=== PATIENT | male | born 1940 | race African-American/Black ===

== ENCOUNTER 2023-10-21 18:02 | Inpatient (IN) | payer MEDICARE, MEDICAID ==
[~2023-10-21 18:02] MED LIST: Iopamidol-370 76% 500 ML MDV (1 ML CHARGE) ONE
[2023-10-21] MEDS ORDERED: Dextrose 10% in Water 250 ML ONE (18:05)
[2023-10-21 19:14] LABS: #Eosinphils 0.1 thou/uL (0.0-0.7); #Monocytes 0.4 thou/uL (0.11-0.59); #Neutrophils 3.9 thou/uL (1.40-6.50); %Basophils 0.4 % (0.0-1.0); %Lymphocytes 11.6 % (21.0-51.0); %Monocytes 7.6 % (0.0-10.0); %Neutrophils 78.8 % (42.0-75.0); Hematocrit 26.1 % (42.0-52.0); Hemoglobin 8.1 g/dL (14.0-18.0); Mean Corpuscular Hemoglobin 27.1 pg (27.0-31.0); Mean Corpuscular Volume 87.3 fl (78.0-98.0); Mean Platelet Volume 10.6 fL (7.4-10.4); RBC Distribution Width 19.6 % (11.5-14.5); Red Blood Cell (RBC) Count 2.99 mill/uL (4.70-6.10)
[2023-10-21 19:15] LABS: Platelet Count 140 10x3/uL (130-400)
[2023-10-21 19:25] LABS: PTT 45.4 sec (22.9-36.1); Prothrombin Time 17.8 sec (12.0-14.7)
[2023-10-21 19:28] LABS: INR-International Normal Ratio 1.5
[2023-10-21 19:38] LABS: ALT (SGPT) 13 U/L (8-55); AST (SGOT) 39 U/L (5-34); Albumin 3.2 g/dL (3.4-4.8); Alkaline Phosphatase 105 U/L (40-110); Anion Gap 15 mmol/L (10-20); BUN (Urea Nitrogen) 14 mg/dL (8.4-25.7); Bilirubin, Total 0.5 mg/dL (0.2-1.2); Calc. Creatinine Clearance 0 mL/min (70-130); Calcium 9.4 mg/dL (7.8-10.44); Carbon Dioxide 22 mmol/L (23-31); Chloride 99 mmol/L (98-107); Estimated GFR 89; Globulin 3.6 g/dL (2.4-3.5); Glucose 307 mg/dL (83-110); Potassium 4.8 mmol/L (3.5-5.1); Protein, Total 6.8 g/dL (5.8-8.1); Sodium 131 mmol/L (136-145)
[2023-10-21 19:41] LABS: Troponin I 3.377 ng/mL (< 0.028)
[2023-10-21] MEDS ORDERED: Ondansetron PF 4 MG/2 ML Vial IVP PRN (22:30)
[2023-10-21] MEDS ORDERED: Acetaminophen 325 MG TAB PO PRN (22:30)
[2023-10-21] MEDS ORDERED: Ondansetron ODT 4 MG TAB SL PRN (22:30)
[2023-10-21] MEDS ORDERED: Labetalol HCl 100 MG/20 ML VIAL SLOW IVP PRN (23:01)
[2023-10-21] MEDS ORDERED: niCARdipine 25 MG in Sodium Chloride 0.9% 250 ML 250 ML IVPB PRN (23:01)
[2023-10-21 23:30] LABS: Critical Call Chem Troponin I RESULT DECREASING; Troponin I 3.323 ng/mL (< 0.028)
[2023-10-22] MEDS: Hydrocortisone Sod Succ/PF 100 mg/2 ml Vial IVP SCH (00:17)
[2023-10-22 01:43] LABS: Troponin I 3.574 ng/mL (< 0.028)
[2023-10-22 04:11] LABS: #Monocytes 0.4 thou/uL (0.11-0.59); #Neutrophils 4.4 thou/uL (1.40-6.50); %Basophils 0.6 % (0.0-1.0); %Eosinophils 0.4 % (0.0-10.0); %Monocytes 7.2 % (0.0-10.0); %Neutrophils 83.4 % (42.0-75.0); Hematocrit 23.5 % (42.0-52.0); Hemoglobin 7.3 g/dL (14.0-18.0); Mean Corpuscular HGB CONC 31.1 g/dL (32.0-36.0); Mean Corpuscular Hemoglobin 28.5 pg (27.0-31.0); Mean Platelet Volume 11.2 fL (7.4-10.4); Platelet Count 121 10x3/uL (130-400); RBC Distribution Width 19.9 % (11.5-14.5); Red Blood Cell (RBC) Count 2.56 mill/uL (4.70-6.10); White Blood Cell (WBC) Count 5.3 10x3/uL (4.8-10.8)
[2023-10-22 04:20] LABS: Mean Corpuscular Volume 91.8 fl (78.0-98.0)
[2023-10-22 04:37] LABS: ALT (SGPT) 11 U/L (8-55); AST (SGOT) 40 U/L (5-34); Albumin 2.7 g/dL (3.4-4.8); Alkaline Phosphatase 89 U/L (40-110); Anion Gap 11 mmol/L (10-20); BUN (Urea Nitrogen) 13 mg/dL (8.4-25.7); Bilirubin, Total 0.4 mg/dL (0.2-1.2); Calc. Creatinine Clearance 68 mL/min (70-130); Carbon Dioxide 22 mmol/L (23-31); Chloride 105 mmol/L (98-107); Estimated GFR 95; Glucose 77 mg/dL (83-110); Potassium 4.9 mmol/L (3.5-5.1); Protein, Total 5.7 g/dL (5.8-8.1); Sodium 133 mmol/L (136-145)
[2023-10-22] MEDS: Albumin 25% 25 GM (100 mL) BOT IVPB SCH ×2 (05:14→11:29)
[2023-10-22] MEDS ORDERED: NOREPINEPHRINE 8 MG/250 ML-D5W 250 ML IVPB SCH (06:30)
[2023-10-22] MEDS: NOREPINEPHRINE 8 MG/250 ML-D5W 250 ML IVPB SCH (06:36)
[2023-10-22] MEDS ORDERED: Dextrose 5% in Water 1,000 ML IV PRN (07:24)
[2023-10-22] MEDS ORDERED: Glucagon 1 MG/ML KIT IM PRN (07:24)
[2023-10-22 08:03] LABS: Hemoglobin A1c 4.8 % (4.0-6.0)
[2023-10-22 08:09] LABS: Cardiac Risk 2.3 (Less than 4.5)
[2023-10-22] MEDS: Lactated Ringer's 1,000 ML IV SCH (11:29)
[2023-10-22] MEDS: Pantoprazole 40 MG VIAL IVP SCH (11:29)
[2023-10-22] MEDS: Aspirin 300 MG Suppository PR SCH (11:30)
[2023-10-22] MEDS ORDERED: Magnevist 469MG/ML 20 ML VIAL ONE (11:33)
[2023-10-22] MEDS: Dextrose 50% Abboject 50 ML SYRINGE SLOW IVP PRN (12:15)
[2023-10-22] MEDS: Ampicillin/Sulbactam 3 GM in Sodium Chloride 0.9% 100 ML IVPB SCH (13:34)
[2023-10-22] MEDS ORDERED: Ampicillin/Sulbactam 1.5 GM in Sodium Chloride 0.9% 100 ML IVPB SCH (18:00)
[2023-10-23 06:33] LABS: #Monocytes 0.6 thou/uL (0.11-0.59); #Neutrophils 3.7 thou/uL (1.40-6.50); %Basophils 0.6 % (0.0-1.0); %Eosinophils 0.8 % (0.0-10.0); %Lymphocytes 13.4 % (21.0-51.0); %Neutrophils 72.4 % (42.0-75.0); Hematocrit 20.9 % (42.0-52.0); Hemoglobin 6.5 g/dL (14.0-18.0); Mean Corpuscular HGB CONC 31.1 g/dL (32.0-36.0); Mean Corpuscular Hemoglobin 27.7 pg (27.0-31.0); Mean Corpuscular Volume 88.9 fl (78.0-98.0); Mean Platelet Volume 11.3 fL (7.4-10.4); Platelet Count 96 10x3/uL (130-400); RBC Distribution Width 19.9 % (11.5-14.5); Red Blood Cell (RBC) Count 2.35 mill/uL (4.70-6.10); White Blood Cell (WBC) Count 5.1 10x3/uL (4.8-10.8)
[2023-10-23 06:59] LABS: ALT (SGPT) 8 U/L (8-55); AST (SGOT) 32 U/L (5-34); Albumin 3.7 g/dL (3.4-4.8); Alkaline Phosphatase 71 U/L (40-110); Anion Gap 15 mmol/L (10-20); BUN (Urea Nitrogen) 15 mg/dL (8.4-25.7); Calc. Creatinine Clearance 58 mL/min (70-130); Calcium 9.2 mg/dL (7.8-10.44); Carbon Dioxide 19 mmol/L (23-31); Chloride 105 mmol/L (98-107); Estimated GFR 91; Globulin 2.4 g/dL (2.4-3.5); Glucose 125 mg/dL (83-110); Potassium 3.9 mmol/L (3.5-5.1); Protein, Total 6.1 g/dL (5.8-8.1); Sodium 135 mmol/L (136-145)
[2023-10-23] MEDS: Aspirin 300 MG Suppository PR SCH (08:29)
[2023-10-23] MEDS ORDERED: Aspirin 300 MG Suppository PR SCH (09:00)
[2023-10-23] MEDS: Lactated Ringer's 1,000 ML IV SCH (16:34)
[2023-10-24 07:37] LABS: #Monocytes 0.5 thou/uL (0.11-0.59); #Neutrophils 4.9 thou/uL (1.40-6.50); %Basophils 0.2 % (0.0-1.0); Hematocrit 19.9 % (42.0-52.0); Hemoglobin 6.6 g/dL (14.0-18.0); Mean Corpuscular HGB CONC 33.2 g/dL (32.0-36.0); Mean Corpuscular Hemoglobin 28.2 pg (27.0-31.0); Mean Platelet Volume 10.9 fL (7.4-10.4); Platelet Count 98 10x3/uL (130-400); RBC Distribution Width 18.6 % (11.5-14.5); Red Blood Cell (RBC) Count 2.34 mill/uL (4.70-6.10)
[2023-10-24 07:57] LABS: ALT (SGPT) 22 U/L (8-55); AST (SGOT) 68 U/L (5-34); Albumin 3.3 g/dL (3.4-4.8); Alkaline Phosphatase 80 U/L (40-110); Anion Gap 13 mmol/L (10-20); BUN (Urea Nitrogen) 24 mg/dL (8.4-25.7); Bilirubin, Total 1.1 mg/dL (0.2-1.2); Calc. Creatinine Clearance 45 mL/min (70-130); Calcium 8.6 mg/dL (7.8-10.44); Carbon Dioxide 22 mmol/L (23-31); Chloride 109 mmol/L (98-107); Estimated GFR 78; Globulin 2.5 g/dL (2.4-3.5); Glucose 153 mg/dL (83-110); Potassium 3.8 mmol/L (3.5-5.1); Protein, Total 5.8 g/dL (5.8-8.1); Sodium 140 mmol/L (136-145)
[2023-10-24 12:24] LABS: #Monocytes 0.6 thou/uL (0.11-0.59); #Neutrophils 4.7 thou/uL (1.40-6.50); %Basophils 0.2 % (0.0-1.0); %Lymphocytes 13.8 % (21.0-51.0); %Monocytes 9.4 % (0.0-10.0); %Neutrophils 75.8 % (42.0-75.0); Hematocrit 24.4 % (42.0-52.0); Hemoglobin 8.5 g/dL (14.0-18.0); Mean Corpuscular HGB CONC 34.8 g/dL (32.0-36.0); Mean Corpuscular Hemoglobin 29.5 pg (27.0-31.0); Mean Corpuscular Volume 84.7 fl (78.0-98.0); Platelet Count 83 10x3/uL (130-400); Red Blood Cell (RBC) Count 2.88 mill/uL (4.70-6.10); White Blood Cell (WBC) Count 6.2 10x3/uL (4.8-10.8)
[2023-10-24] MEDS ORDERED: Etomidate 40 MG (20 mL) VIAL ONE (14:28)
[2023-10-24] MEDS ORDERED: SUCCINYLCHOLINE/SOD CL,ISO/PF 200 MG/10 ML SYRINGE FS ONE (14:28)
[2023-10-24 15:54] LABS: Actual Bicarbonate (HCO3a) 23.4 mEq/L (22-28); Base Excess (BEa) -0.3 mEq/L (-2.0 to +3.0); CO2 Tension 34.1 mmHg (35.0-45.0); Calcium, Ionized (arterial) 1.22 mmol/L (1.12-1.30); Carboxyhemoglobin (COHb) 0.9 gm% (0.0-3.0); Hematocrit-ABG 27 % (42.0-52.0); Hemoglobin (Hb) 9.1 g/dL (14.0-18.0); O2 Tension (PaO2), arterial 132.9 mmHg (> 60.0); Potassium - ABG Lab 3.74 mmol/L (3.70-5.30); pH, Arterial 7.454 (7.35-7.45)
[2023-10-24 16:00] LABS: ALV-art Gradient 109.675 mmHg (0-20); Puncture Site RRA
[2023-10-24 19:07] LABS: Troponin I 24.046 ng/mL (< 0.028)
[2023-10-24] MEDS: Magnesium 2 GM/50 ML(in water) 2 GM in Premix 1 BAG IVPB SCH (19:59)
[2023-10-24] MEDS ORDERED: Ventilator Sedation Protocol 1 EACH FS SCH (20:30)
[2023-10-24] MEDS ORDERED: Fentanyl CADD 100 ML IV SCH (20:45)
[2023-10-24] MEDS ORDERED: Propofol BOLUS 1,000 MG/100 ML VIAL IV PRN (20:45)
[2023-10-24] MEDS ORDERED: Fentanyl BOLUS 250 ML IVPB PRN (20:45)
[2023-10-24] MEDS ORDERED: Lorazepam 2 MG/ML VIAL SLOW IVP PRN (20:45)
[2023-10-24] MEDS ORDERED: DISCONTINUE PREVIOUS NARCOTIC PAIN MEDICATIONS AND BENZODIAZEPINES FS SCH (20:45)
[2023-10-24] MEDS ORDERED: Morphine 2 MG/ML VIAL SLOW IVP PRN (20:45)
[2023-10-24] MEDS ORDERED: Propofol 1,000 MG/100 ML VIAL IV PRN (20:45)
[2023-10-24] MEDS: Dexamethasone 10 MG/ML VIAL SLOW IVP SCH (21:11)
[2023-10-24 21:20] LABS: INR-International Normal Ratio 1.7; Prothrombin Time 20.2 sec (12.0-14.7)
[2023-10-24 21:21] LABS: PTT 42.8 sec (22.9-36.1)
[2023-10-24 21:31] LABS: Magnesium 2.5 mg/dL (1.6-2.6)
[2023-10-24 21:40] LABS: Critical Call Chem Troponin I RESULT DECREASING; Troponin I 23.797 ng/mL (< 0.028)
[2023-10-24 22:17] LABS: Hematocrit 23.4 % (42.0-52.0); Hemoglobin 8.1 g/dL (14.0-18.0); Mean Corpuscular HGB CONC 34.6 g/dL (32.0-36.0); Mean Corpuscular Hemoglobin 29.5 pg (27.0-31.0); Mean Corpuscular Volume 85.1 fl (78.0-98.0); Mean Platelet Volume 10.6 fL (7.4-10.4); RBC Distribution Width 17.3 % (11.5-14.5); Red Blood Cell (RBC) Count 2.75 mill/uL (4.70-6.10); White Blood Cell (WBC) Count 7.3 10x3/uL (4.8-10.8)
[2023-10-24 22:23] LABS: Platelet Count 78 10x3/uL (130-400)
[2023-10-24 22:41] LABS: Anion Gap 18 mmol/L (10-20); BUN (Urea Nitrogen) 29 mg/dL (8.4-25.7); Calc. Creatinine Clearance 43 mL/min (70-130); Carbon Dioxide 20 mmol/L (23-31); Chloride 109 mmol/L (98-107); Estimated GFR 75; Glucose 123 mg/dL (83-110); Potassium 3.8 mmol/L (3.5-5.1); Sodium 143 mmol/L (136-145)
[2023-10-25] MEDS: FLU VACC QS2023(65UP)/MF59C/PF 60 MCG/0.5 ML SYRINGE IM ONE (00:46)
[2023-10-25 05:08] LABS: #Monocytes 0.3 thou/uL (0.11-0.59); #Neutrophils 7.3 thou/uL (1.40-6.50); %Basophils 0.1 % (0.0-1.0); %Lymphocytes 2.1 % (21.0-51.0); %Monocytes 3.2 % (0.0-10.0); %Neutrophils 93.8 % (42.0-75.0); Hematocrit 26.1 % (42.0-52.0); Hemoglobin 8.6 g/dL (14.0-18.0); Mean Corpuscular Hemoglobin 28.9 pg (27.0-31.0); Mean Corpuscular Volume 87.6 fl (78.0-98.0); Mean Platelet Volume 11.9 fL (7.4-10.4); RBC Distribution Width 17.4 % (11.5-14.5); Red Blood Cell (RBC) Count 2.98 mill/uL (4.70-6.10); White Blood Cell (WBC) Count 7.8 10x3/uL (4.8-10.8)
[2023-10-25 05:45] LABS: Platelet Count 86 10x3/uL (130-400)
[2023-10-25 09:50] LABS: Anion Gap 17 mmol/L (10-20); BUN (Urea Nitrogen) 33 mg/dL (8.4-25.7); Calc. Creatinine Clearance 38 mL/min (70-130); Calcium 9.2 mg/dL (7.8-10.44); Carbon Dioxide 21 mmol/L (23-31); Chloride 108 mmol/L (98-107); Estimated GFR 63; Glucose 141 mg/dL (83-110); Potassium 4.5 mmol/L (3.5-5.1); Sodium 141 mmol/L (136-145)
[2023-10-26 04:28] LABS: #Monocytes 0.5 thou/uL (0.11-0.59); #Neutrophils 7.2 thou/uL (1.40-6.50); %Lymphocytes 3.6 % (21.0-51.0); %Monocytes 6.5 % (0.0-10.0); %Neutrophils 89.3 % (42.0-75.0); Hematocrit 25.3 % (42.0-52.0); Hemoglobin 8.3 g/dL (14.0-18.0); Mean Corpuscular HGB CONC 32.8 g/dL (32.0-36.0); Mean Corpuscular Volume 88.5 fl (78.0-98.0); Mean Platelet Volume 11.4 fL (7.4-10.4); Platelet Count 97 10x3/uL (130-400); RBC Distribution Width 17.7 % (11.5-14.5); Red Blood Cell (RBC) Count 2.86 mill/uL (4.70-6.10)
[2023-10-26 04:44] LABS: Lactic Acid 0.9 mmol/L (0.5-2.2)
[2023-10-26 04:47] LABS: Anion Gap 14 mmol/L (10-20); BUN (Urea Nitrogen) 46 mg/dL (8.4-25.7); Calc. Creatinine Clearance 35 mL/min (70-130); Calcium 9.2 mg/dL (7.8-10.44); Carbon Dioxide 25 mmol/L (23-31); Chloride 107 mmol/L (98-107); Estimated GFR 57; Glucose 149 mg/dL (83-110); Potassium 4.2 mmol/L (3.5-5.1); Sodium 142 mmol/L (136-145)
[2023-10-26] MEDS: Aspirin 81 mg Enteric Coated Tablet PO SCH (08:36)
[2023-10-26] MEDS: Aspirin Chewable 81 MG TAB PO SCH (10:38)
[2023-10-26] MEDS: Midodrine HCl 5 MG TAB PO SCH (15:21)
[2023-10-26] MEDS: Albumin 25% 25 GM (100 mL) BOT IVPB SCH ×2 (18:42→23:31)
[2023-10-26] MEDS: DOPamine 400 MG/D5W 250 ML 250 ML IVPB SCH (20:12)
[2023-10-27 04:33] LABS: Hematocrit 25.9 % (42.0-52.0); Hemoglobin 8.1 g/dL (14.0-18.0); Platelet Count 96 10x3/uL (130-400)
[2023-10-27 04:59] LABS: Anion Gap 16 mmol/L (10-20); BUN (Urea Nitrogen) 55 mg/dL (8.4-25.7); Calc. Creatinine Clearance 32 mL/min (70-130); Calcium 9.3 mg/dL (7.8-10.44); Carbon Dioxide 25 mmol/L (23-31); Chloride 106 mmol/L (98-107); Estimated GFR 52; Glucose 144 mg/dL (83-110); Potassium 3.8 mmol/L (3.5-5.1); Sodium 143 mmol/L (136-145)
[2023-10-27 05:08] LABS: Critical Call Chem Troponin I ICU.RB@0508; Troponin I 11.479 ng/mL (< 0.028)
[2023-10-27 07:23] VITALS: BMI 17.1
[2023-10-27] MEDS: Aspirin Chewable 81 MG TAB PO SCH (09:09)
[2023-10-27] MEDS ORDERED: Sodium Chloride 0.9% 500 ML IV SCH (16:00)
[2023-10-27 19:02] VITALS: BP 86/53
[2023-10-27 19:35] VITALS: TEMP 98.2
[2023-10-27] MEDS: Lactated Ringer's 1,000 ML IV SCH (21:54)
[2023-10-27] MEDS: Furosemide 40 MG (4 mL) VIAL SLOW IVP SCH (22:30)
[2023-10-27] MEDS: Albumin 25% 25 GM (100 mL) BOT IVPB SCH (22:31)
== END 2023-10-28 01:12 | disposition expired | DRG 64 ==
LOC: ERS 18:02 → CCU 21:26
PROVIDERS: ADMIT Internal Medicine; ATTEND Family Medicine
PROC: 30233J1 Transfusion of Nonautologous Serum Albumin into Peripheral Vein, Percutaneous Approach (ICD-10-PCS; 2023-10-22)
PROC: 3E033XZ Introduction of Vasopressor into Peripheral Vein, Percutaneous Approach (ICD-10-PCS; 2023-10-22)
PROC: 30233N1 Transfusion of Nonautologous Red Blood Cells into Peripheral Vein, Percutaneous Approach (ICD-10-PCS; principal; 2023-10-23)
PROC: 4A033R1 Measurement of Arterial Saturation, Peripheral, Percutaneous Approach (ICD-10-PCS; 2023-10-24)
PROC: 0BH17EZ Insertion of Endotracheal Airway into Trachea, Via Natural or Artificial Opening (ICD-10-PCS; 2023-10-24)
PROC: 5A1945Z Respiratory Ventilation, 24-96 Consecutive Hours (ICD-10-PCS; 2023-10-24)
DX: I63.513 Cerebral infarction due to unspecified occlusion or stenosis of bilateral middle cerebral arteries (principal); E43 Unspecified severe protein-calorie malnutrition; G93.41 Metabolic encephalopathy; Z66 Do not resuscitate; Z51.5 Encounter for palliative care; I61.4 Nontraumatic intracerebral hemorrhage in cerebellum; J96.01 Acute respiratory failure with hypoxia; I21.4 Non-ST elevation (NSTEMI) myocardial infarction; J69.0 Pneumonitis due to inhalation of food and vomit; I50.33 Acute on chronic diastolic (congestive) heart failure; Z68.1 Body mass index [BMI] 19.9 or less, adult; E87.1 Hypo-osmolality and hyponatremia; G81.94 Hemiplegia, unspecified affecting left nondominant side; J91.8 Pleural effusion in other conditions classified elsewhere; I31.39 Other pericardial effusion (noninflammatory); R64 Cachexia; I48.20 Chronic atrial fibrillation, unspecified; R47.01 Aphasia; I63.543 Cerebral infarction due to unspecified occlusion or stenosis of bilateral cerebellar arteries; R00.1 Bradycardia, unspecified; R13.10 Dysphagia, unspecified; R47.1 Dysarthria and anarthria; D44.7 Neoplasm of uncertain behavior of aortic body and other paraganglia; I25.10 Atherosclerotic heart disease of native coronary artery without angina pectoris; R62.7 Adult failure to thrive; D63.8 Anemia in other chronic diseases classified elsewhere; R57.0 Cardiogenic shock; Z79.899 Other long term (current) drug therapy; I08.2 Rheumatic disorders of both aortic and tricuspid valves; R47.81 Slurred speech; Z87.891 Personal history of nicotine dependence; R29.706 NIHSS score 6; F10.20 Alcohol dependence, uncomplicated; I95.9 Hypotension, unspecified
CPT/HCPCS: 36415; 36416; 36430; 36600; 70450; 70496; 70498; 70553; 71045; 74018; 74176; 80048; 80053; 80061; 82805; 83036; 83605; 83735; 83880; 84145; 84484; 85014; 85018; 85025; 85049; 85610; 85730; 86850; 86900; 86901; 93005; 93010; 93306; 94002; 94003; 96374; A9579; C9113; J0295; J1100; J1265; J1720; J1940; J3475; J3490; J7120; J7999; P9016; P9047; Q9967